=== PATIENT | male | born 1975 | race Caucasian/White ===

== ENCOUNTER → 2016-10-21 | Outpatient (CLI) | payer BC | END | disposition home or self-care (01) | LOC: GMAL 11:35 | PROVIDERS: ATTEND Family Medicine | DX: D51.3 Other dietary vitamin B12 deficiency anemia (principal); E78.00 Pure hypercholesterolemia, unspecified; E29.8 Other testicular dysfunction; R53.82 Chronic fatigue, unspecified; E55.9 Vitamin D deficiency, unspecified ==

== ENCOUNTER → 2017-10-26 | Outpatient (CLI) | payer BC | END | disposition home or self-care (01) | LOC: GMAL 10:17 | PROVIDERS: ATTEND Family Medicine | DX: R53.82 Chronic fatigue, unspecified (principal); D51.3 Other dietary vitamin B12 deficiency anemia; E29.8 Other testicular dysfunction; E55.9 Vitamin D deficiency, unspecified ==

== ENCOUNTER → 2018-06-23 | Outpatient (CLI) | payer BC ==
--- NOTE | 2018-06-23 14:38 | MRI ---
MRI right knee without contrast INDICATION: Knee pain status post fall 5 days ago anterior bruising TECHNIQUE: Noncontrast MR imaging right knee standard protocol FINDINGS: No acute patellar fracture. There is prepatellar edema/bursitis likely posttraumatic contusion as well. Minimal joint fluid. No advanced patellofemoral arthrosis. There is a multi locular Brunner's cyst extending proximally 5 cm. Cruciate ligaments are intact. Extensor tendons are intact. No focal meniscal defect. Collateral ligaments are intact. No unstable osteochondral lesion. IMPRESSION: Brunner's cyst with proximal extension Soft tissue edema/contusion and prepatellar bursal edema without underlying patellar fracture or disruption of the extensor tendons No internal derangement of the knee otherwise Electronically signed by: Carlyle Cooper MD 06/23/2018 2:36 PM [id number]
== END ==
LOC: MRI 10:00
PROVIDERS: ATTEND Family Medicine
DX: M25.561 Pain in right knee (principal); M71.21 Synovial cyst of popliteal space [Baker], right knee; R60.0 Localized edema

== ENCOUNTER → 2019-11-27 | Outpatient (CLI) | payer BC | LOC: GMAL 11:31 | PROVIDERS: ATTEND Family Medicine | DX: Z00.01 Encounter for general adult medical examination with abnormal findings (principal); E29.8 Other testicular dysfunction; E55.9 Vitamin D deficiency, unspecified; D51.3 Other dietary vitamin B12 deficiency anemia ==